=== PATIENT | female | born 1995 | race Hispanic/Latino ===

== ENCOUNTER 2017-05-18 10:07 | Outpatient (CLI) | payer OTHER | END 2017-05-18 10:08 | disposition home or self-care (01) | LOC: BICRAD 10:07 | PROVIDERS: ATTEND Family Medicine | DX: Z11.1 Encounter for screening for respiratory tuberculosis (principal) | CPT/HCPCS: 71046 ==

== ENCOUNTER 2018-03-21 11:45 | Emergency (ER) | payer OTHER, SELFPAY ==
[2018-03-21] MEDS ORDERED: Dexamethasone 4 MG TAB ONE (12:50)
== END 2018-03-21 13:04 | disposition home or self-care (01) ==
LOC: ERS 11:45
DX: R21 Rash and other nonspecific skin eruption (principal)
CPT/HCPCS: 99282; J8540